=== PATIENT | male | born 1975 | race Caucasian/White ===

== ENCOUNTER 2021-07-14 14:57 | Emergency (ER) | payer MEDICAID ==
[~2021-07-14] VITALS: Ht 175.3 cm; Wt 74.0 kg
[2021-07-14] MEDS ORDERED: LIDOCAINE HCL/PF 1% 10 MG/ML 5ML VIAL INFIL ONE (15:45)
[2021-07-14] MEDS ORDERED: BACITRACIN ZINC OINT UDPKT TOP ONE (15:45)
[2021-07-14] MEDS ORDERED: HYDROCODONE/ACETAMINOPHEN 5/325MG TABLET PO ONE (15:45)
[2021-07-14] MEDS ORDERED: LIDOCAINE HCL 1% 20ML VIAL (Pyxis) INJ INFIL ONE (16:00)
[2021-07-14] MEDS ORDERED: IBUP-2029 PO (17:26)
[2021-07-14 17:36] VITALS: BP 141/65
== END 2021-07-14 17:38 | disposition home or self-care (01) ==
LOC: ER 14:57
DX: S51.812A Laceration without foreign body of left forearm, initial encounter (principal); W27.0XXA Contact with workbench tool, initial encounter; Y93.89 Activity, other specified; Y92.9 Unspecified place or not applicable
CPT/HCPCS: 73090; 99283; A4217; J3490; Z7610